=== PATIENT | male | born 1955 | race Caucasian/White ===

== ENCOUNTER 2022-06-04 00:40 | Day surgery (SDC) | payer OTHER, SELFPAY ==
[2022-05-24 13:51] VITALS: BMI 27.3
[2022-06-04 11:51] VITALS: BP 132/77; PULSE 73; RESP 18; TEMP 36.3; O2SAT 100
[2022-06-04] MEDS: LACTATED RINGERS 1,000 ML 150 ML IV CONT (12:01)
[2022-06-04 12:03] LABS: Glucose Point of Care 165 mg/dl (65-105)
--- NOTE | 2022-06-04 12:10 | WPDANESEPPF ---
Anes - Initial Pre Proc Eval Procedure: Operation Date: 06/04/22 13:00 Proposed Procedures p Screening Colonoscopy - Lyle Elliott MD Date/Time: 06/04/22 12:10 Surgeon: Lyle Elliott MD Pre Op Diagnosis: neoplasm screening Patient Data Age: 66 Gender: M Height: 1.78 m Weight: 89.4 kg Last Vital Signs Temp 97.4 F L 06/04/22 11:51 Pulse 73 06/04/22 11:51 Resp 18 06/04/22 11:51 BP 132/77 06/04/22 11:51 Pulse Ox 100 06/04/22 11:51 O2 Del Method Room Air 06/04/22 11:51 Allergies Allergy/AdvReac Type Severity Reaction Status Date / Time No Known Allergies Allergy Unknown Verified 06/04/22 11:48 Home Medications Medication Instructions Recorded Confirmed Type sodium,potassium,mag sulfates 17.5 See Rx Instructions PO .COMPLEX 05/09/22 05/24/22 Rx gram-3.13 gram-1.6 gram oral soln #354 mL (Suprep Bowel Prep Kit) levothyroxine 150 mcg tablet 150 mcg PO DAILY 05/24/22 05/24/22 History (Synthroid) metformin 500 mg tablet,extended 1,000 mg PO BID 05/24/22 05/24/22 History release 24 hr rosuvastatin 10 mg tablet 10 mg PO DAILY 05/24/22 05/24/22 History Laboratory Tests 06/04/22 11:59 POC Capillary Glucose 165 mg/dl H mg/dl (65-105) Patient hx anesthesia problems: none Family hx anesthesia problems: none Results Review: All pre-operative results and documents have been reviewed as part of the pre-operative evaluation. [facility] Social History Social History Smoking status: Never smoker Alcohol intake: never Substance use: never Substance use type: does not use Living arrangements: with family Spiritual care concerns: No Anes - Eval Final PreProcedure Day of Procedure 06/04/22 12:10 Patient weight: normal Heart: regular rate and rhythm Lungs: clear to auscultation Airway: Mallampati scale class II Neurological: alert and oriented Last oral intake: >/= 8 hours ASA classification: III Emergent: no Anesthetic plan: proceed Anesthesia type and monitoring: general GIVS and standard monitoring Results Review: All pre-operative results and documents have been reviewed as part of the pre-operative evaluation. Informed Consent: The patient's anesthetic plan and its attendant risks and benefits were discussed with the patient/family/POA. Questions were solicited and answers provided to the satisfaction of the patient/family/POA.
--- NOTE | 2022-06-04 12:14 | PM.HPGS ---
History of Present Illness History of Present Illness Consent: Risks, benefits, and alternatives have been discussed and questions answered. Patient agrees to proceed with procedure. Chief complaint: neoplasm screening Narrative: Basil Guadalupe is a 66 year old male Presents for screening colonoscopy. Patient's current weight appetite bowel movements are normal. Patient denies abdominal pain. He has had no bleeding. Family history noncontributory. Previous colonoscopy more than 10 years ago was unremarkable. Review of Systems Review of Systems: Review of systems noncontributory. [facility] Social History Social History Smoking status: Never smoker Alcohol intake: never Substance use: never Substance use type: does not use Living arrangements: with family Spiritual care concerns: No Meds Home Medications and Allergies Home Medications Medication Instructions Recorded Confirmed Type sodium,potassium,mag sulfates 17.5 See Rx Instructions PO .COMPLEX 05/09/22 05/24/22 Rx gram-3.13 gram-1.6 gram oral soln #354 mL (Suprep Bowel Prep Kit) levothyroxine 150 mcg tablet 150 mcg PO DAILY 05/24/22 05/24/22 History (Synthroid) metformin 500 mg tablet,extended 1,000 mg PO BID 05/24/22 05/24/22 History release 24 hr rosuvastatin 10 mg tablet 10 mg PO DAILY 05/24/22 05/24/22 History Allergies Allergy/AdvReac Type Severity Reaction Status Date / Time No Known Allergies Allergy Unknown Verified 06/04/22 11:48 Vital Signs Vital Signs - 24 hr 06/04/22 11:51 Temperature 97.4 F L Pulse Rate 73 Respiratory Rate 18 Blood Pressure 132/77 Pulse Oximetry 100 Oxygen Delivery Room Air Exam Narrative: Physical exam reveals patient be alert. Vital signs stable. HEENT exam is unremarkable. Patient is anicteric. Lungs are clear to auscultation and percussion. Heart is without murmur or extra sounds. Abdomen bowel sounds are present soft nontender with no organomegaly. Digital external rectal exam is normal. Assessment and Plan Assessment and plan (1) Encounter for screening colonoscopy: Code(s): Z12.11 - Encounter for screening for malignant neoplasm of colon Status: Acute Assessment and Plan: Patient presents for screening colonoscopy. He appears to be at average risk for colon polyps. Further recommendations may be given after endoscopy.
[2022-06-04 12:42] VITALS: BP 108/75; PULSE 85; RESP 16; O2SAT 95
[2022-06-04 12:52] VITALS: BP 111/72; PULSE 81; RESP 20; O2SAT 98
[2022-06-04 13:02] VITALS: BP 122/87; PULSE 76; RESP 20; O2SAT 97
== END 2022-06-04 13:15 | disposition home or self-care (01) ==
PROVIDERS: PCP Physician Assistant; Visit Provider Internal Medicine Gastroenterology
PROC: 0DJD8ZZ Inspection of Lower Intestinal Tract, Via Natural or Artificial Opening Endoscopic (ICD-10-PCS; CPT 45378; principal; 2022-06-04 13:00)
DX: Z12.11 Encounter for screening for malignant neoplasm of colon (principal); D12.5 Benign neoplasm of sigmoid colon; K64.8 Other hemorrhoids; Z79.84 Long term (current) use of oral hypoglycemic drugs
CPT/HCPCS: 45380; 82948; 88305; J2704; J7120